=== PATIENT | female | born 1990 | race American Indian/Alaskan Native ===

== ENCOUNTER 2018-08-16 08:27 | Emergency (ER) | payer BC, OTHER ==
[2018-08-16 08:27] VITALS: BMI 33.7
--- NOTE | 2018-08-16 09:02 | C.PDOC ---
History Of Present Illness Patient is a 28yo female with PMH anemia who presents to the ED with 1 month of intermittent abdominal pain. Patient describes pain as "something poking inside me" in her RLQ, but also reports occasional generalized cramping. Pain is worse when sitting down or doing bending motions. Patient saw her doctor earlier this month for the same problem, was referred to get an US, but did not have the US done. Also reports one episode of vomiting and 2-3 days diarrhea last week. LMP 07/25. Denies fever, chills, recent illness, chest pain, SOB, urinary symptoms. <Tori Souza - Last Filed: 08/16/18 10:16> <Yaneth Bañuelos - Last Filed: 08/16/18 10:00> <Tori Souza - Last Filed: 08/16/18 10:16> Time Seen by Provider: 08/16/18 08:30 Chief Complaint (Nursing): Abdominal Pain Past Medical History Vital Signs: Last Vital Signs Temp 98.1 F 08/16/18 08:34 Pulse 83 08/16/18 08:34 Resp 20 08/16/18 08:34 BP 104/72 08/16/18 08:34 Pulse Ox 100 08/16/18 08:34 <Yaneth Bañuelos - Last Filed: 08/16/18 10:00> Primary Care Provider: FAMILY PROVIDER,NO - Medical History PMH: Anemia Family History: States: Unknown Family Hx - Social History Hx Alcohol Use: No Hx Substance Use: No - Immunization History Hx Tetanus Toxoid Vaccination: Yes Hx Influenza Vaccination: No Hx Pneumococcal Vaccination: No <Tori Souza - Last Filed: 08/16/18 10:16> Review Of Systems Except As Marked, All Systems Reviewed And Found Negative. <Tori Souza - Last Filed: 08/16/18 10:16> Physical Exam - Physical Exam Appears: Well, Non-toxic, No Acute Distress Skin: Normal Color, Warm, Dry Respiratory: Normal Breath Sounds Gastrointestinal/Abdominal: Soft, Tenderness (suprapubic, to deep palpation), No Mass, No Guarding <Tori Souza - Last Filed: 08/16/18 10:16> ED Course And Treatment - Laboratory Results Result Diagrams: 08/16/18 09:07 08/16/18 09:07 Lab Results: Total Bilirubin 0.5 mg/dL (0.2-1.3) 08/16/18 09:07 AST 21 U/L (14-36) 08/16/18 09:07 ALT 16 U/L (9-52) 08/16/18 09:07 Alkaline Phosphatase 70 U/L (38-126) 08/16/18 09:07 Total Protein 7.4 g/dL (6.3-8.3) 08/16/18 09:07 Albumin 4.2 g/dL (3.5-5.0) 08/16/18 09:07 Globulin 3.2 gm/dL (2.2-3.9) 08/16/18 09:07 Albumin/Globulin Ratio 1.3 (1.0-2.1) 08/16/18 09:07 Urine Color Yellow (YELLOW) 08/16/18 09:07 Urine Clarity Clear (Clear) 08/16/18 09:07 Urine pH 6.0 (5.0-8.0) 08/16/18 09:07 Ur Specific [place] 1.014 (1.003-1.030) 08/16/18 09:07 Urine Protein Negative mg/dL (NEGATIVE) 08/16/18 09:07 Urine Glucose (UA) Normal mg/dL (Normal) 08/16/18 09:07 Urine Ketones Negative mg/dL (NEGATIVE) 08/16/18 09:07 Urine Blood Negative (NEGATIVE) 08/16/18 09:07 Urine Nitrate Negative (NEGATIVE) 08/16/18 09:07 Urine Bilirubin Negative (NEGATIVE) 08/16/18 09:07 Urine Urobilinogen Normal mg/dL (0.2-1.0) 08/16/18 09:07 Ur Leukocyte Esterase Neg [place]/uL (Negative) 08/16/18 09:07 Urine WBC (Auto) 1 /hpf (0-5) 08/16/18 09:07 Urine RBC (Auto) < 1 /hpf (0-3) 08/16/18 09:07 Ur Squamous Epith Cells 2 /hpf (0-5) 08/16/18 09:07 Urine Bacteria Rare (<OCC) 08/16/18 09:07 Urine HCG, Qual Negative (NEGATIVE) 08/16/18 09:07 Urine HCG, Qual Negative (NEGATIVE) 08/16/18 09:07 <Yaneth Bañuelos - Last Filed: 08/16/18 10:00> - Laboratory Results Result Diagrams: 08/16/18 09:07 08/16/18 09:07 Progress Note: Patient clinically stable. Pain currently well tolerated. Will obtain labs and abdominal XR <Tori Souza - Last Filed: 08/16/18 10:16> Disposition Counseled Patient/Family Regarding: Studies Performed, Diagnosis, Rx Given - Disposition Disposition Time: 10:01 - POA Present On Arrival: None <Yaneth Bañuelos - Last Filed: 08/16/18 10:00> <Tori Souza - Last Filed: 08/16/18 10:16> - Disposition Referrals: [facility] [Outside] Disposition: HOME/ ROUTINE Condition: STABLE Prescriptions: Psyllium Husk/Aspartame [Metamucil Fiber Singles Packet] 1 packet PO HS #30 powd.pack Wheat Dextrin [Benefiber] 1 each PO DAILY #30 powd.pack Instructions: Constipation, Adult (DC) Forms: General Discharge Instructions, [facility] (Greek), Work Excuse - Clinical Impression Clinical Impression: Abdominal pain, Constipation Addendum Addendum: 08/16/18 10:11 Patient stable with mild abdominal discomfort. Reviewed abdominal XR, noting large quantity of stool in the large intestine. Labs normal. Discussed findings with patient--no acute findings, discomfort likely due to constipation. Counseled patient to increase fiber and water intake, avoid rice. Recommended fiber supplement, rx sent to patient's pharmacy. <Tori Souza - Last Filed: 08/16/18 10:16>
[2018-08-16 09:11] LABS: BASO % 0.8 % (0.0-2.0); EOS # 0.1 K/uL (0.0-0.7); EOS % 1.4 % (0.0-4.0); HEMOGLOBIN 12.7 g/dL (11.0-16.0); LYMPH # 1.2 K/uL (1.0-4.3); LYMPH % 26.8 % (20.0-40.0); MEAN CELL VOLUME 82.6 fL (81.0-99.0); MEAN CORPUSCULAR HGB CONC 33.9 g/dL (33.0-37.0); MEAN PLATELET VOLUME 7.8 fL (7.2-11.7); MONO # 0.3 K/uL (0.0-0.8); NEUT # 2.8 K/uL (1.8-7.0); RBC 4.52 Mil/uL (3.80-5.20); RED CELL DISTRIBUTION WIDTH 13.5 % (11.5-14.5); WHITE BLOOD COUNT 4.3 K/uL (4.8-10.8)
[2018-08-16 09:16] LABS: HCG,QUALITATIVE URINE NEGATIVE (NEGATIVE)
[2018-08-16 09:17] LABS: SQUAMOUS EPITHIAL 2 /hpf (0-5); URINE BACTERIA RARE (<OCC); URINE BILIRUBIN NEGATIVE (NEGATIVE); URINE BLOOD NEGATIVE (NEGATIVE); URINE CLARITY Clear (Clear); URINE COLOR Yellow (YELLOW); URINE GLUCOSE (UA) NORMAL (Normal); URINE LEUKOCYTE ESTERASE NEG Leu/uL (Negative); URINE PROTEIN NEGATIVE (NEGATIVE); URINE UROBILINOGEN NORMAL mg/dL (0.2-1.0)
[2018-08-16 09:19] VITALS: BP 104/72; PULSE 83; RESP 20; TEMP 98.1; O2SAT 100
[2018-08-16 09:30] LABS: ALB/GLOB RATIO 1.3 (1.0-2.1); ALBUMIN 4.2 g/dL (3.5-5.0); ALT/SGPT 16 U/L (9-52); AST/SGOT 21 U/L (14-36); BLOOD UREA NITROGEN 11 mg/dL (7-17); CALCIUM 8.2 mg/dl (8.6-10.4); GFR NON-AFRICAN AMERICAN > 60
--- NOTE | 2018-08-16 14:09 | RAD ---
Date of service: 08/16/2018 HISTORY: abd pain COMPARISON: None available. TECHNIQUE: 1 view obtained. FINDINGS: BOWEL: No evidence of acute mechanical bowel obstruction. No gross free intraperitoneal air seen on this limited supine study. Large amount of stool seen throughout the colon consistent with fecal retention/constipation BONES: Normal. OTHER FINDINGS: None. IMPRESSION: Findings consistent with fecal retention/constipation. No evidence of acute mechanical bowel obstruction.
== END 2018-08-16 10:16 | disposition home or self-care (01) ==
LOC: C.ER 08:27
DX: K59.00 Constipation, unspecified (principal); R10.9 Unspecified abdominal pain